=== PATIENT | male | born 1980 | race Caucasian/White ===

== ENCOUNTER 2016-12-03 03:24 | Emergency (ER) | payer BC ==
[2016-12-03 03:54] VITALS: BP 126/76; PULSE 88; TEMP 97.5; BMI 27.3
[2016-12-03] MEDS ORDERED: FOLIC ACID INJECTION - 1 MG, THIAMINE HCL 100 MG, MULTIVIT INJECTION ADULT 10 ML in SOD... IVPB ONE (04:11)
[2016-12-03] MEDS ORDERED: LORazepam 1 MG TABLET PO ONE (04:11)
--- NOTE | 2016-12-03 04:18 | PDOC ---
History of Present Illness <Kayleigh Wilson - Last Filed: 12/03/16 06:59> - General History Source: Patient Exam Limitations: No Limitations - History of Present Illness Initial Comments: 12/03/16 04:14 36 y.o. M with hx of polysubstance abuse (cocaine-last use friday and alcohol - last use today) presenting to the ED today because he would like detox and [facility] does not open until 8 am. Patient states he has been drinking all day and cannot tell me how much. Patient states he has been to [facility] multiple times in the past for 1 week at at time and wants to stay longer to stop his behaviors. Patient denies any symptoms other than anxiety currently. <Elias Luu - Last Filed: 12/05/16 07:23> - General Chief Complaint: Alcohol intoxication Stated Complaint: ALCOHOL DETOX Time Seen by Provider: 12/03/16 03:45 Past History <Kayleigh Wilson - Last Filed: 12/03/16 06:59> - Past Medical History Anemia: No Asthma: No Cancer: No Cardiac Disorders: No CVA: No COPD: No CHF: No Dementia: No Diabetes: No GI Disorders: No Disorders: No HTN: No Hypercholesterolemia: No Kidney Stones: No Liver Disease: No Seizures: No Thyroid Disease: No - Surgical History Abdominal Surgery: No Appendectomy: No Cardiac Surgery: No Cholecystectomy: No Lung Surgery: No Neurologic Surgery: No Orthopedic Surgery: No - Reproductive History Testicular Surgery: No - Suicide/Smoking/Psychosocial Hx Smoking History: Current every day smoker Have you smoked in the past 12 months: Yes Number of Cigarettes Smoked Daily: 2 Cigars Per Day: 0 Information on smoking cessation initiated: No 'Breaking Loose' booklet given: 02/23/15 Hx Alcohol Use: Yes Drug/Substance Use Hx: No Substance Use Type: Alcohol, Cocaine Hx Substance Use Treatment: Yes (05/28/13 TO 05/31/13) <Elias Luu - Last Filed: 12/05/16 07:23> - Past Medical History Allergies/Adverse Reactions: Allergies Allergy/AdvReac Type Severity Reaction Status Date / Time No Known Allergies Allergy Verified 12/03/16 03:49 Home Medications: Ambulatory Orders NK [No Known Home Medication] 05/28/13 Review of Systems - Review of Systems Able to Perform ROS?: Yes Comments:: 12/03/16 04:17 GENERAL/CONSTITUTIONAL: No fever or chills. No weakness. HEAD, EYES, EARS, NOSE AND THROAT: No change in vision. No ear pain or discharge. No sore throat. CARDIOVASCULAR: No chest pain or shortness of breath RESPIRATORY: No cough, wheezing, or hemoptysis. GASTROINTESTINAL: No nausea, vomiting, diarrhea or constipation. GENITOURINARY: No dysuria, frequency, or change in urination. MUSCULOSKELETAL: No joint or muscle swelling or pain. No neck or back pain. SKIN: No rash NEUROLOGIC: No headache, vertigo, loss of consciousness, or change in strength/ sensation. ENDOCRINE: No increased thirst. No abnormal weight change HEMATOLOGIC/LYMPHATIC: No anemia, easy bleeding, or history of blood clots. ALLERGIC/IMMUNOLOGIC: No hives or skin allergy. <Elias Luu - Last Filed: 12/05/16 07:23> *Physical Exam - Vital Signs Last Vital Signs Temp Pulse Resp BP Pulse Ox 97.5 F L 88 14 126/76 100 12/03/16 03:49 12/03/16 03:49 12/03/16 03:49 12/03/16 03:49 12/03/16 03:49 <Kayleigh Wilson - Last Filed: 12/03/16 06:59> - Vital Signs Last Vital Signs Temp Pulse Resp BP Pulse Ox 97.5 F L 88 14 126/76 100 12/03/16 03:49 12/03/16 03:49 12/03/16 03:49 12/03/16 03:49 12/03/16 03:49 - Physical Exam Comments: 12/03/16 04:17 GENERAL: Awake, alert, and fully oriented, in no acute distress.+Anxious, pacing up and down the halls, +disheveled HEAD: No signs of trauma, normocephalic, atraumatic EYES: PERRLA, EOMI, sclera anicteric, conjunctiva clear ENT: Auricles normal inspection, hearing grossly normal, nares patent, oropharynx clear without exudates. Moist mucosa NECK: Normal ROM, supple, no lymphadenopathy, JVD, or masses LUNGS: No distress, speaks full sentences, clear to auscultation bilaterally HEART: Regular rate and rhythm, normal S1 and S2, no murmurs, rubs or gallops, peripheral pulses normal and equal bilaterally. ABDOMEN: Soft, nontender, normoactive bowel sounds. No guarding, no rebound. No masses EXTREMITIES: Normal inspection, Normal range of motion, no edema. No clubbing or cyanosis. NEUROLOGICAL: Cranial nerves II through XII grossly intact. Normal speech, normal gait, no focal sensorimotor deficits SKIN: Warm, Dry, normal turgor, no rashes or lesions noted. <Elias Luu - Last Filed: 12/05/16 07:23> ED Treatment Course - LABORATORY CBC & Chemistry Diagram: 12/03/16 04:55 12/03/16 04:55 - ADDITIONAL ORDERS Additional order review: Laboratory Results 12/03/16 12/03/16 04:55 04:55 Sodium 140 Potassium 4.6 D Chloride 101 Carbon Dioxide 27 Anion Gap 12 BUN 13 D Creatinine 0.9 Creat Clearance w eGFR > 60 Random Glucose 91 Calcium 9.0 Magnesium 2.1 Total Bilirubin 0.3 D AST 26 D ALT 32 D Alkaline Phosphatase 77 Total Protein 7.3 Albumin 4.0 Alcohol, Quantitative 114.9 H* 12/03/16 04:55 RBC 4.95 MCV 90.0 MCHC 33.7 RDW 13.9 MPV 8.4 Neutrophils % 70.3 Lymphocytes % 21.7 Monocytes % 6.7 Eosinophils % 0.4 Basophils % 0.9 - Medications Given in the ED: ED Medications Discontinued Medications Generic Name Dose Route Start Last Admin Trade Name Freq PRN Reason Stop Dose Admin Lorazepam 1 mg 12/03/16 04:11 12/03/16 05:12 Ativan - PO 12/03/16 04:12 1 mg ONCE ONE Administration <Kayleigh Wilson - Last Filed: 12/03/16 06:59> - LABORATORY CBC & Chemistry Diagram: 12/03/16 04:55 12/03/16 04:55 <Elias Luu - Last Filed: 12/05/16 07:23> Medical Decision Making - Medical Decision Making 12/03/16 04:17 36 y.o M with polysubstance abuse wants detox from alcohol and cocaine. Plan: CBC, CMP, Banana Bag, Mg, Ativan PO Patient to be transferred to [facility] <Elias Luu - Last Filed: 12/05/16 07:23> *DC/Admit/Observation/Transfer - Discharge Dispostion Admit: No <Kayleigh Wilson - Last Filed: 12/03/16 06:59> <Elias Luu - Last Filed: 12/05/16 07:23> Diagnosis at time of Disposition: Alcohol intoxication - Discharge Dispostion Disposition: HOME Condition at time of disposition: Stable - Referrals Referrals: Mariella Hyman MD [Staff Physician] - - Patient Instructions Printed Discharge Instructions: DI for Alcohol Abuse Additional Instructions: Please stop using alcohol and cocaine. Please follow up with your PMD once you are discharged from the ED.
--- NOTE | 2016-12-03 04:35 | PDOC ---
Attending Attestation - HPI HPI: 12/03/16 04:40 36 y/o M with a PMHx of alcohol abuse, cocaine abuse presents to the ED requesting detox. Patient reports that he first went to [facility] but they told him they were not accepting admissions until 8 am. Patient is intoxicated. He would not say how much he drank today, but stated his last drink was at 8 pm last night. He also reported that his last cocaine use was 3 days ago. He reports associated anxiety and states he has mental health issues. He also states he feel like he needs to breathe harder to catch his breath. He has gone to detox 3 times prior for one week sessions, and wants to stay longer this time so that he can stay sober. He denies chest pain. Denies nausea, vomiting, diarrhea. Denies any other complaints. - Physicial Exam PE: 12/03/16 04:41 GENERAL: Awake, alert, and fully oriented, in no acute distress. Anxious HEAD: No signs of trauma, dandruff in hair. EYES: PERRLA, EOMI, sclera anicteric, conjunctiva clear ENT: Auricles normal inspection, hearing grossly normal, nares patent, oropharynx clear without exudates. Moist mucosa NECK: Normal ROM, supple, no lymphadenopathy, JVD, or masses LUNGS: Breath sounds equal, clear to auscultation bilaterally. No wheezes, and no crackles HEART: Regular rate and rhythm, normal S1 and S2, no murmurs, rubs or gallops ABDOMEN: Soft, nontender, normoactive bowel sounds. No guarding, no rebound. No masses EXTREMITIES: Normal range of motion, no edema. No clubbing or cyanosis. No cords, erythema, or tenderness NEUROLOGICAL: Cranial nerves II through XII grossly intact. Normal speech, normal gait SKIN: Warm, Dry, normal turgor, no rashes or lesions noted. Dry skin on face. - Medical Decision Making 12/03/16 04:41 Documentation prepared by Shyann Shearer, acting as medical receptionist for Kayleigh Wilson DO. <Shyann Shearer - Last Filed: 12/03/16 04:40> - Resident Resident Name: Elias Luu - ED Attending Attestation I have performed the following: I have examined & evaluated the patient, The case was reviewed & discussed with the resident, I agree w/resident's findings & plan, Exceptions are as noted - Medical Decision Making 12/03/16 04:34 a/p: 36yo male with alcohol and cocaine use requesting help with polysubstance abuse -denies SI/HI -will check labs given binge drinking -pt very anxious. will medicate and reassess -pt requesting to go to detox once stabilized. 12/03/16 06:31 attempted to contact [facility] - awaiting call back 12/03/16 06:31 pt metabolizing etoh, but requests detox. 12/03/16 06:32 pt will be signed out to the oncoming ED physician pending metabolism of etoh and detox assessment for [facility]. <Kayleigh Wilson - Last Filed: 12/03/16 06:33>
[2016-12-03] MEDS ORDERED: LORazepam 0.5 MG TABLET ONE (04:44)
[2016-12-03 05:23] LABS: BASOPHIL 0.9 % (0-2.0); EOSINOPHIL 0.4 % (0-4.5); MCH 30.3 pg (25.7-33.7); MCHC 33.7 g/dl (32.0-35.9); MEAN PLT VOLUME 8.4 fl (7.5-11.1); NEUTROPHILS 70.3 % (42.8-82.8); PLATELET COUNT 293 K/MM3 (134-434); RDW 13.9 % (11.9-15.9); WHITE BLOOD COUNT 9.3 K/mm3 (4.0-10.0)
[2016-12-03 05:43] LABS: ALK PHOS 77 U/L (45-117); ANION GAP 12 (8-16); BILIRUBIN,TOTAL 0.3 mg/dL (0.2-1.0); CO2 27 mmol/L (21-32); CREATININE 0.9 mg/dL (0.7-1.3); GLUCOSE,RANDOM 91 mg/dL (74-106); SGPT/ALT 32 U/L (12-78); TOT PROT 7.3 g/dl (6.4-8.2)
[2016-12-03 05:46] LABS: MAGNESIUM 2.1 mg/dL (1.8-2.4); SGOT/AST 26 U/L (15-37)
[2016-12-03 08:55] LABS: URINE MARIJUANA THC NEGATIVE ng/ml (CUTOFF=50)
== END 2016-12-03 08:23 | disposition other institution (70) ==
LOC: JER 03:24
PROC: 3E033GC Introduction of Other Therapeutic Substance into Peripheral Vein, Percutaneous Approach (ICD-10-PCS; principal; 2016-12-03)
DX: F10.220 Alcohol dependence with intoxication, uncomplicated (principal); F17.210 Nicotine dependence, cigarettes, uncomplicated
CPT/HCPCS: 36415; 80053; 80307; 83735; 85025; 99283-25

== ENCOUNTER 2017-06-01 09:49 | Inpatient (IN) | payer BC ==
[2017-06-01 10:31] VITALS: BMI 26.5
--- NOTE | 2017-06-01 11:33 | HP ---
CIWA Score - CIWA Score Nausea/Vomitin (vomiting x 5) Muscle Tremors: 4-Moderate,w/Arms Extend Anxiety: 4-Mod. Anxious/Guarded Agitation: 3 Paroxysmal Sweats: 3 (back of neck) Orientation: 0-Oriented Tacttile Disturbances: 0-None Auditory Disturbances: 0-None Visual Disturbances: 0-None Headache: 2-Mild CIWA-Ar Total Score: 19 Admission ROS [facility] - HPI Chief Complaint: Alcohol withdrawal symptoms Allergies/Adverse Reactions: Allergies Allergy/AdvReac Type Severity Reaction Status Date / Time No Known Allergies Allergy Verified 06/01/17 11:11 History of Present Illness: 36 years old male with a long history of alcohol dependent is seeking admission to detox. He has been to previous detox at [facility] and reports insignificant period of sobriety. He has medical history of anxiety and depression. He denies suicide attempt and suicidal ideation at this time. Exam Limitations: No Limitations - Ebola screening Have you traveled outside of the country in the last 21 days: No (N) Have you had contact with anyone from an Ebola affected area: No Have you been sick,other than usual withdrawal symptoms: No Do you have a fever: No - Review of Systems Constitutional: Chills, Loss of Appetite, Malaise, Night Sweats, Changes in sleep EENT: reports: Nose Congestion Respiratory: reports: No Symptoms reported Cardiac: reports: No Symptoms Reported GI: reports: Nausea, Poor Appetite, Poor Fluid Intake, Vomiting (x 5), Abdominal cramping : reports: No Symptoms Reported Musculoskeletal: reports: Muscle Pain Integumentary: reports: Dryness Neuro: reports: Tingling, Tremors Endocrine: reports: No Symptoms Reported Psychiatric: reports: Orientated x3, Anxious, Depressed Other Systems: Reviewed and Negative Patient History - Patient Medical History Hx Anemia: No Hx Asthma: No Hx Chronic Obstructive Pulmonary Disease (COPD): No Hx Cancer: No Hx Cardiac Disorders: No Hx Congestive Heart Failure: No Hx Hypertension: No Hx Hypercholesterolemia: No Hx Pacemaker: No HX Cerebrovascular Accident: No Hx Seizures: No Hx Dementia: No Hx Diabetes: No Hx Gastrointestinal Disorders: No Hx Liver Disease: No Hx Genitourinary Disorders: No Hx Sexually Transmitted Disorders: No Hx Renal Disease (ESRD): No Hx Thyroid Disease: No Hx Human Immunodeficiency Virus (HIV): No (NEGATIVE 2012) Hx Hepatitis C: No Hx Depression: Yes (Not on medication) Hx Suicide Attempt: No (Denies suicidal ideation at this time) Hx Bipolar Disorder: No Hx Schizophrenia: No Other Medical History: Anxiety, Insomnia - Patient Surgical History Past Surgical History: No Hx Neurologic Surgery: No Hx Cataract Extraction: No Hx Cardiac Surgery: No Hx Lung Surgery: No Hx Abdominal Surgery: No Hx Appendectomy: No Hx Cholecystectomy: No Hx Genitourinary Surgery: No Hx Orthopedic Surgery: No Anesthesia Reaction: No - PPD History Previous Implant?: Yes Documented Results: Negative w/proof Implanted On Prior [facility] Admission?: Yes Date: 02/25/15 PPD to be Administered?: Yes - Reproductive History Patient is a Female of Child Bearing Age (11 -55 yrs old): No (MALE) - Smoking Cessation Smoking history: Current every day smoker Have you smoked in the past 12 months: Yes Aproximately how many cigarettes per day: 2 Cigars Per Day: 0 Hx Chewing Tobacco Use: No Initiated information on smoking cessation: Yes 'Breaking Loose' booklet given: 06/01/17 - Substance & Tx. History Hx Alcohol Use: Yes Hx Substance Use: No Substance Use Type: Alcohol Hx Substance Use Treatment: Yes ([place], [place]) - Substances Abused Alcohol Route: Oral Frequency: Daily Amount used: 20 BEERS Age of first use: 14 Date of Last Use: 05/31/17 Marijuana/Hashish Frequency: No use in 30 days Amount used: 1 BLUNT Age of first use: 13 Date of Last Use: 04/24/17 Family Disease History - Family Disease History Family Disease History: Diabetes: Father (ALCOHOL), Other: Father, Mother ( ALCOHOL) Admission Physical Exam [facility] - Vital Signs Vital Signs: Vital Signs - 24 hr 06/01/17 10:24 Temperature 98.7 F Pulse Rate 98 H Respiratory 20 Rate Blood Pressure 143/67 - Physical General Appearance: Yes: Moderate Distress HEENTM: Yes: EOMI, Normal ENT Inspection, Normal Voice, BETH Respiratory: Yes: Lungs Clear, Normal Breath Sounds, No Respiratory Distress Neck: Yes: Supple Breast: Yes: Breast Exam Deferred Cardiology: Yes: Tachycardia Abdominal: Yes: Normal Bowel Sounds, Soft Genitourinary: Yes: Within Normal Limits Back: Yes: Normal Inspection Musculoskeletal: Yes: Back pain Extremities: Yes: Tremors Neurological: Yes: Alert, Normal Mood/Affect Integumentary: Yes: Dry Lymphatic: Yes: Within Normal Limits - Diagnostic (1) Anxiety Current Visit: Yes Status: Chronic (2) Alcohol dependence with uncomplicated withdrawal Current Visit: Yes Status: Chronic (3) Depression Current Visit: Yes Status: Chronic (4) Nicotine dependence Current Visit: Yes Status: Chronic Qualifiers: Nicotine product type: cigarettes Substance use status: uncomplicated Qualified Code(s): F17.210 - Nicotine dependence, cigarettes, uncomplicated Cleared for Admission [facility] - Detox or Rehab [facility] Level of Care: Medically Managed Detox Regimen/Protocol: Librium [facility] Breath Alcohol Content Breath Alcohol Content: 0.122 Urine Drug Screen - Results Drug Screen Negative: No Urine Drug Screen Results: TCA-Tricyclic Antidepress
[2017-06-01] MEDS ORDERED: ACETAMINOPHEN 325 MG TABLET (FP) PO PRN (11:52)
[2017-06-01] MEDS ORDERED: LOPERAMIDE HCL 2 MG CAPSULE PO PRN (11:52)
[2017-06-01] MEDS ORDERED: chlordiazePOXIDE HCL 25 MG CAPSULE PO PRN (11:52)
[2017-06-01] MEDS ORDERED: MENTHOL/PHENOL 1 EACH UD MM PRN (11:52)
[2017-06-01] MEDS ORDERED: NICOTINE POLACRILEX 2 MG GUM BUC PRN (11:52)
[2017-06-01] MEDS ORDERED: P-EPHED 60MG/TRIPROLIDI 2.5MG TABLET PO PRN (11:52)
[2017-06-01] MEDS ORDERED: MAGNESIUM HYDROX 2400MG/30ML ORAL SUSPENSION 30 ML CUP PO PRN (11:52)
[2017-06-01] MEDS ORDERED: MAG HYDROX/AL HYDROX/SIMETH 30 ML UNIT-DOSE CUP PO PRN (11:52)
[2017-06-01] MEDS ORDERED: chlordiazePOXIDE HCL 25 MG CAPSULE PO ONE (11:52)
[2017-06-01] MEDS ORDERED: guaiFENesin/D-METHORPHAN HB 10 ML UNIT-DOSE CUPS PO PRN (11:52)
[2017-06-01] MEDS ORDERED: MAGNESIUM CITRATE 300 ML BOTTLE PO PRN (11:52)
[2017-06-01] MEDS ORDERED: IBUPROFEN 400 MG TABLET (FP) PO PRN (11:52)
--- NOTE | 2017-06-01 14:46 | EKG ---
Test Reason : Blood Pressure : / mmHG Vent. Rate : 098 BPM Atrial Rate : 098 BPM P-R Int : 136 ms QRS Dur : 098 ms QT Int : 356 ms P-R-T Axes : 069 078 050 degrees QTc Int : 454 ms NORMAL SINUS RHYTHM NORMAL ECG NO PREVIOUS ECGS AVAILABLE Confirmed by CHEO DICK, VINCENT ([id number]) on 06/01/2017 2:45:45 PM Referred By: Confirmed By:VINCENT GRIDER MD
[2017-06-01 15:11] LABS: URINE APPEARANCE CLEAR; URINE BILIRUBIN NEGATIVE (<2.0 mg/dL); URINE BLOOD NEGATIVE (NEGATIVE); URINE COLOR YELLOW; URINE GLUCOSE (UA) NEGATIVE (NEGATIVE); URINE KETONE NEGATIVE (NEGATIVE); URINE LEUK ESTERASE NEGATIVE (NEGATIVE); URINE NITRITE NEGATIVE (NEGATIVE)
[2017-06-01 15:12] LABS: URINE PROTEIN 1+ (NEGATIVE)
[2017-06-01 15:15] LABS: URINE HYALINE CAST 1 /lpf; URINE MUCUS RARE
[2017-06-01] MEDS: chlordiazePOXIDE HCL 25 MG CAPSULE PO SCH ×2 (17:56→22:12)
[2017-06-01] MEDS: MELATONIN 5 MG TABLETS PO PRN (22:11)
[2017-06-01] MEDS: THIAMINE HCL 100 MG TABLET (FP) PO SCH (22:12)
[2017-06-02] MEDS: chlordiazePOXIDE HCL 25 MG CAPSULE PO SCH ×4 (05:20→22:25)
[2017-06-02] MEDS: PRENATAL VITAMINS W/ FOLIC ACID TABLET (FP) PO SCH (10:20)
[2017-06-02] MEDS: NICOTINE 14 MG/24 HOURS TOPICAL PATCH TD SCH (10:21)
[2017-06-02 12:33] LABS: ALBUMIN 3.6 g/dl (3.4-5.0); ANION GAP 11 (8-16); BILIRUBIN,TOTAL 1.1 mg/dL (0.2-1.0); BLOOD UREA NITROGEN 15 mg/dL (7-18); CALCIUM 9.1 mg/dL (8.5-10.1); CHLORIDE 99 mmol/L (98-107); CO2 31 mmol/L (21-32); CREATININE 0.8 mg/dL (0.7-1.3); GLUCOSE,RANDOM 90 mg/dL (74-106); POTASSIUM 3.4 mmol/L (3.5-5.1); SGOT/AST 75 U/L (15-37); SGPT/ALT 51 U/L (12-78); SODIUM 141 mmol/L (136-145); TOT PROT 6.9 g/dl (6.4-8.2)
[2017-06-02 12:34] LABS: ALK PHOS 76 U/L (45-117)
--- NOTE | 2017-06-02 12:41 | PN ---
S CIWA - CIWA Score Nausea/Vomitin Muscle Tremors: 3 Anxiety: 3 Agitation: 2 Paroxysmal Sweats: 3 Orientation: 0-Oriented Tacttile Disturbances: 0-None Auditory Disturbances: 0-None Visual Disturbances: 0-None Headache: 0-None Present CIWA-Ar Total Score: 14 BHS Progress Note (SOAP) Subjective: sweats shakes sleep disturbance Objective: 06/02/17 12:37 A & O x 3 Vital Signs Temperature 96.2 F L 06/02/17 09:14 Pulse Rate 93 H 06/02/17 09:14 Respiratory Rate 18 06/02/17 09:14 Blood Pressure 133/91 06/02/17 09:14 O2 Sat by Pulse Oximetry (%) Laboratory Last Values Sodium 141 mmol/L (136-145) 06/02/17 07:00 Potassium 3.4 mmol/L (3.5-5.1) L D 06/02/17 07:00 Chloride 99 mmol/L (98-107) 06/02/17 07:00 Carbon Dioxide 31 mmol/L (21-32) 06/02/17 07:00 Anion Gap 11 (8-16) 06/02/17 07:00 BUN 15 mg/dL (7-18) 06/02/17 07:00 Creatinine 0.8 mg/dL (0.7-1.3) 06/02/17 07:00 Creat Clearance w eGFR > 60 (>60) 06/02/17 07:00 Random Glucose 90 mg/dL (74-106) 06/02/17 07:00 Calcium 9.1 mg/dL (8.5-10.1) 06/02/17 07:00 Total Bilirubin 1.1 mg/dL (0.2-1.0) H D 06/02/17 07:00 AST 75 U/L (15-37) H D 06/02/17 07:00 ALT 51 U/L (12-78) D 06/02/17 07:00 Alkaline Phosphatase 76 U/L (45-117) 06/02/17 07:00 Total Protein 6.9 g/dl (6.4-8.2) 06/02/17 07:00 Albumin 3.6 g/dl (3.4-5.0) 06/02/17 07:00 Urine Color Yellow 06/01/17 12:54 Urine Appearance Clear 06/01/17 12:54 Urine pH 6.0 (5.0-8.0) 06/01/17 12:54 Ur Specific [place] 1.027 (1.001-1.035) 06/01/17 12:54 Urine Protein 1+ (NEGATIVE) H 06/01/17 12:54 Urine Glucose (UA) Negative (NEGATIVE) 06/01/17 12:54 Urine Ketones Negative (NEGATIVE) 06/01/17 12:54 Urine Blood Negative (NEGATIVE) 06/01/17 12:54 Urine Nitrite Negative (NEGATIVE) 06/01/17 12:54 Urine Bilirubin Negative (<2.0 mg/dL) 06/01/17 12:54 Urine Urobilinogen 2.0 mg/dL (0.2-1.0) 06/01/17 12:54 Ur Leukocyte Esterase Negative (NEGATIVE) 06/01/17 12:54 Urine WBC (Auto) 1 /hpf (3-5) 06/01/17 12:54 Urine RBC (Auto) 1 /hpf (0-3) 06/01/17 12:54 Hyaline Casts 1 /lpf 06/01/17 12:54 Urine Mucus Rare 06/01/17 12:54 labs noted, Low k+ Assessment: 06/02/17 12:41 withdrawal sx Plan: continue detox Potassium supplement Increase hydration
--- NOTE | 2017-06-02 13:38 | CONSULT ---
[facility] Psychiatric Consult - Data Date of interview: 06/02/17 Admission source: [facility] Identifying data: First admission to [facility] for this 36 y/o male seeking detox treatent on for alcohol and cannabis dependence.Patient is single without children,domiciled and currently employed. Substance Abuse History: Confirmed by patient in this session.[facility] report : Smoking history: Current every day smoker. Have you smoked in the past 12 months: Yes. Aproximately how many cigarettes per day: 2. Cigars Per Day: 0. Hx Chewing Tobacco Use: No. Initiated information on smoking cessation: Yes. 'Breaking Loose' booklet given: 06/01/17. - Substance & Tx. History. Hx Alcohol Use: Yes. Hx Substance Use: No. Substance Use Type : Alcohol. Hx Substance Use Treatment: Yes ([place], [place]). - Substances Abused. Alcohol. Route: Oral. Frequency: Daily. Amount used : 20 BEERS. Age of first use: 14. Date of Last Use: 05/31/17. Marijuana/ Hashish. Frequency: No use in 30 days. Amount used: 1 BLUNT. Age of first use : 13. Date of Last Use: 04/24/17 Medical History: Patient endorses good general health. Psychiatric History: Patient denies history of psychiatric hospitalizations or suicide attempts.Mr King indicates no prior exposure to psychotropic medications/psychiatric OPD care. Physical/Sexual Abuse/Trauma History: No history reported. Additional Comment: Urine Drug Screen Results: TCA-Tricyclic Antidepressant.Noted. Mental Status Exam - Mental Status Exam Alert and Oriented to: Time, Place, Person Cognitive Function: Good Patient Appearance: Well Groomed Mood: Hopeful, Euthymic Affect: Appropriate, Normal Range Patient Behavior: Appropriate, Cooperative Speech Pattern: Clear, Appropriate Voice Loudness: Normal Thought Process: Intact, Goal Oriented Thought Disorder: Not Present Hallucinations: Denies Suicidal Ideation: Denies Homicidal Ideation: Denies Insight/Judgement: Poor Sleep: Poorly, Difficulty falling asleep Appetite: Good Muscle strength/Tone: Normal Gait/Station: Normal Psychiatric Findings - Problem List ([place] 1, 2,3) (1) Alcohol dependence with uncomplicated withdrawal Current Visit: Yes Status: Acute (2) Nicotine dependence Current Visit: Yes Status: Acute Qualifiers: Nicotine product type: cigarettes Substance use status: uncomplicated Qualified Code(s): F17.210 - Nicotine dependence, cigarettes, uncomplicated (3) Insomnia Current Visit: Yes Status: Acute - Initial Treatment Plan Initial Treatment Plan: Psychoeducation.Sleep hygiene discussed.Psychoeducation.Detoxification in progress.Ambien 10 mg po hs prn.Patient made aware of risk of parasomnias (sleep-walking).Mr King agrees with this careplan.Observation.
[2017-06-02 14:29] LABS: HEMATOCRIT 42.1 % (35.4-49); HEMOGLOBIN 14.2 GM/dL (11.7-16.9); MCH 30.9 pg (25.7-33.7); MCHC 33.8 g/dl (32.0-35.9); MEAN CELL VOLUME 91.3 fl (80-96); MEAN PLT VOLUME 8.5 fl (7.5-11.1); PLATELET COUNT 205 K/MM3 (134-434); RBC 4.62 M/mm3 (4.00-5.60); RDW 14.2 % (11.9-15.9)
[2017-06-02] MEDS ORDERED: ZOLPIDEM TARTRATE 10 MG TABLET (PARK CARE ONLY) PO PRN (22:00)
[2017-06-02] MEDS: THIAMINE HCL 100 MG TABLET (FP) PO SCH (22:25)
[2017-06-02] MEDS: MELATONIN 5 MG TABLETS PO PRN (22:26)
[2017-06-03] MEDS: chlordiazePOXIDE HCL 25 MG CAPSULE PO SCH ×2 (05:21→10:07)
[2017-06-03] MEDS: PRENATAL VITAMINS W/ FOLIC ACID TABLET (FP) PO SCH (10:06)
[2017-06-03] MEDS: NICOTINE 14 MG/24 HOURS TOPICAL PATCH TD SCH (10:48)
--- NOTE | 2017-06-03 10:57 | PN ---
[facility] CIWA - CIWA Score Nausea/Vomitin-No Nausea/No Vomiting Muscle Tremors: None Anxiety: 4-Mod. Anxious/Guarded Agitation: 4-Moderately Restless Paroxysmal Sweats: No Perspiration Orientation: 0-Oriented Tacttile Disturbances: 2-Mild Itch/Numbness/Burn Auditory Disturbances: 1-Very Mild Visual Disturbances: 3-Moderate Sensitivity Headache: 0-None Present CIWA-Ar Total Score: 14 S Progress Note (SOAP) Subjective: Stomach Cramping, Anxious, Fatigue, Interrupted Sleep. Objective: PATIENT A & O X 3, OBSERVED AMBULATING ON UNIT. NO ACUTE DISTRESS. 06/03/17 10:54 Vital Signs Temperature 97.9 F 06/03/17 09:24 Pulse Rate 88 06/03/17 09:24 Respiratory Rate 18 06/03/17 09:24 Blood Pressure 122/61 06/03/17 09:24 O2 Sat by Pulse Oximetry (%) Laboratory Tests 06/01/17 06/02/17 06/02/17 12:54 07:00 07:00 WBC 7.0 RBC 4.62 Hgb 14.2 Hct 42.1 MCV 91.3 MCH 30.9 MCHC 33.8 RDW 14.2 Plt Count 205 D MPV 8.5 Sodium 141 Potassium 3.4 L D Chloride 99 Carbon Dioxide 31 Anion Gap 11 BUN 15 Creatinine 0.8 Creat Clearance w eGFR > 60 Random Glucose 90 Calcium 9.1 Total Bilirubin 1.1 H D AST 75 H D ALT 51 D Alkaline Phosphatase 76 Total Protein 6.9 Albumin 3.6 Urine Color Yellow Urine Appearance Clear Urine pH 6.0 Ur Specific [place] 1.027 Urine Protein 1+ H Urine Glucose (UA) Negative Urine Ketones Negative Urine Blood Negative Urine Nitrite Negative Urine Bilirubin Negative Urine Urobilinogen 2.0 Ur Leukocyte Esterase Negative Urine WBC (Auto) 1 Urine RBC (Auto) 1 Hyaline Casts 1 Urine Mucus Rare LABS NOTED. RPR RESULT PENDING. 06/03/17 10:56 Assessment: 06/03/17 10:55 WITHDRAWAL SYMPTOMS. HYPOKALEMIA. 06/03/17 10:55 Plan: CONTINUE DETOX. K-DUR, 20 MEQ PO X I NOW, THEN 20 MEQ PO BID. INCREASE DAILY PO FLUID INTAKE.
[2017-06-03] MEDS ORDERED: POTASSIUM CHLORIDE TABS 20 MEQ TABLET.ER (FP) PO ONE (11:35)
[2017-06-03] MEDS: chlordiazePOXIDE 5 MG CAPSULE PO SCH ×2 (17:23→22:40)
[2017-06-03] MEDS: POTASSIUM CHLORIDE TABS 20 MEQ TABLET.ER (FP) PO SCH (17:23)
[2017-06-03] MEDS: THIAMINE HCL 100 MG TABLET (FP) PO SCH (22:39)
[2017-06-04] MEDS: chlordiazePOXIDE 5 MG CAPSULE PO SCH ×2 (05:33→10:09)
[2017-06-04 06:26] VITALS: TEMP 97
[2017-06-04 09:54] VITALS: BP 102/65; PULSE 75
[2017-06-04] MEDS: PRENATAL VITAMINS W/ FOLIC ACID TABLET (FP) PO SCH (10:09)
[2017-06-04] MEDS: POTASSIUM CHLORIDE TABS 20 MEQ TABLET.ER (FP) PO SCH (10:09)
[2017-06-04] MEDS: NICOTINE 14 MG/24 HOURS TOPICAL PATCH TD SCH (10:09)
--- NOTE | 2017-06-04 14:22 | PN ---
[facility] Progress Note (SOAP) Subjective: Patient denies any current Detox symptoms and reports that he is feeling well overall. Objective: PATIENT A & O X 3, OBSERVED AMBULATING ON UNIT. NO ACUTE DISTRESS. 06/04/17 14:20 Vital Signs Temperature 97 F L 06/04/17 09:53 Pulse Rate 75 06/04/17 09:53 Respiratory Rate 18 06/04/17 09:53 Blood Pressure 102/65 06/04/17 09:53 O2 Sat by Pulse Oximetry (%) Laboratory Tests 06/01/17 06/02/17 06/02/17 12:54 07:00 07:00 WBC 7.0 RBC 4.62 Hgb 14.2 Hct 42.1 MCV 91.3 MCH 30.9 MCHC 33.8 RDW 14.2 Plt Count 205 D MPV 8.5 Sodium 141 Potassium 3.4 L D Chloride 99 Carbon Dioxide 31 Anion Gap 11 BUN 15 Creatinine 0.8 Creat Clearance w eGFR > 60 Random Glucose 90 Calcium 9.1 Total Bilirubin 1.1 H D AST 75 H D ALT 51 D Alkaline Phosphatase 76 Total Protein 6.9 Albumin 3.6 Urine Color Yellow Urine Appearance Clear Urine pH 6.0 Ur Specific [place] 1.027 Urine Protein 1+ H Urine Glucose (UA) Negative Urine Ketones Negative Urine Blood Negative Urine Nitrite Negative Urine Bilirubin Negative Urine Urobilinogen 2.0 Ur Leukocyte Esterase Negative Urine WBC (Auto) 1 Urine RBC (Auto) 1 Hyaline Casts 1 Urine Mucus Rare RPR Titer 06/02/17 07:00 WBC RBC Hgb Hct MCV MCH MCHC RDW Plt Count MPV Sodium Potassium Chloride Carbon Dioxide Anion Gap BUN Creatinine Creat Clearance w eGFR Random Glucose Calcium Total Bilirubin AST ALT Alkaline Phosphatase Total Protein Albumin Urine Color Urine Appearance Urine pH Ur Specific [place] Urine Protein Urine Glucose (UA) Urine Ketones Urine Blood Urine Nitrite Urine Bilirubin Urine Urobilinogen Ur Leukocyte Esterase Urine WBC (Auto) Urine RBC (Auto) Hyaline Casts Urine Mucus RPR Titer Nonreactive LABS NOTED. Assessment: 06/04/17 14:20 COMPLETION OF DETOX REGIMEN. Plan: PATIENT SCHEDULED FOR DISCHARGE FROM DETOX TODAY. PATIENT WILL RETURN HOME SO THAT HE MAY RETURN TO WORK. PATIENT WILL ALSO RETURN TO PREVIOUS OUTPATIENT [facility].
--- NOTE | 2017-06-04 14:25 | DS ---
[facility] Detox Discharge Summary Admission Date: 06/01/17 Discharge Date: 06/04/17 - History Present History: Alcohol Dependence Additional Comments: PATIENT DENIES ANY CURRENT DETOX SYMPTOMS AND REPORTS THAT HE FEELS WELL OVERALL AT TIME OF DISCHARGE. PATIENT WILL RETURN HOME SO THAT HE MAY RETURN TO WORK. PATIENT WILL ALSO RETURN TO PREVIOUS OUTPATIENT SUPPORT GROUP MEETINGS FOR AFTERCARE. PATIENT WAS DISCHARGED FROM DETOX UNIT IN STABLE MEDICAL CONDITION. Pertinent Past History: Depression, Anxiety, Insomnia, Nicotine Dependence, Syncope. - Physical Exam Results Vital Signs: Vital Signs Temperature 97 F L 06/04/17 09:53 Pulse Rate 75 06/04/17 09:53 Respiratory Rate 18 06/04/17 09:53 Blood Pressure 102/65 06/04/17 09:53 O2 Sat by Pulse Oximetry (%) Pertinent Admission Physical Exam Findings: WITHDRAWAL SYMPTOMS. Laboratory Tests 06/01/17 06/02/17 06/02/17 12:54 07:00 07:00 WBC 7.0 RBC 4.62 Hgb 14.2 Hct 42.1 MCV 91.3 MCH 30.9 MCHC 33.8 RDW 14.2 Plt Count 205 D MPV 8.5 Sodium 141 Potassium 3.4 L D Chloride 99 Carbon Dioxide 31 Anion Gap 11 BUN 15 Creatinine 0.8 Creat Clearance w eGFR > 60 Random Glucose 90 Calcium 9.1 Total Bilirubin 1.1 H D AST 75 H D ALT 51 D Alkaline Phosphatase 76 Total Protein 6.9 Albumin 3.6 Urine Color Yellow Urine Appearance Clear Urine pH 6.0 Ur Specific [place] 1.027 Urine Protein 1+ H Urine Glucose (UA) Negative Urine Ketones Negative Urine Blood Negative Urine Nitrite Negative Urine Bilirubin Negative Urine Urobilinogen 2.0 Ur Leukocyte Esterase Negative Urine WBC (Auto) 1 Urine RBC (Auto) 1 Hyaline Casts 1 Urine Mucus Rare RPR Titer 06/02/17 07:00 WBC RBC Hgb Hct MCV MCH MCHC RDW Plt Count MPV Sodium Potassium Chloride Carbon Dioxide Anion Gap BUN Creatinine Creat Clearance w eGFR Random Glucose Calcium Total Bilirubin AST ALT Alkaline Phosphatase Total Protein Albumin Urine Color Urine Appearance Urine pH Ur Specific [place] Urine Protein Urine Glucose (UA) Urine Ketones Urine Blood Urine Nitrite Urine Bilirubin Urine Urobilinogen Ur Leukocyte Esterase Urine WBC (Auto) Urine RBC (Auto) Hyaline Casts Urine Mucus RPR Titer Nonreactive LABS NOTED. - Treatment Hospital Course: Detox Protocol Followed, Detoxed Safely, Responded well, Discharged Condition Good Patient has Accepted a Rehab Referral to: PT RETURNING TO HOME/WORK; WILL RETURN TO PREVIOUS OUTPATIENT AA MEETINGS. - Medication Discharge Medications: Ambulatory Orders NK [No Known Home Medication] 05/28/13 - Diagnosis (1) Alcohol dependence with uncomplicated withdrawal Status: Acute (2) Anxiety Status: Chronic (3) Depression Status: Chronic Qualifiers: Depression Type: unspecified Qualified Code(s): F32.9 - Major depressive disorder, single episode, unspecified (4) Nicotine dependence Status: Acute Qualifiers: Nicotine product type: cigarettes Substance use status: uncomplicated Qualified Code(s): F17.210 - Nicotine dependence, cigarettes, uncomplicated (5) Syncope Status: Acute Qualifiers: Syncope type: unspecified Qualified Code(s): R55 - Syncope and collapse (6) Insomnia Status: Acute Qualifiers: Insomnia type: unspecified Qualified Code(s): G47.00 - Insomnia, unspecified - AMA Did Patient Leave Against Medical Advice: No
[2017-06-04] MEDS ORDERED: chlordiazePOXIDE HCL 10 MG CAPSULE PO SCH (17:00)
== END 2017-06-04 10:35 | disposition home or self-care (01) | DRG 897 ==
LOC: YASAS 09:49 → Y3N 12:15
PROVIDERS: ADMIT Internal Medicine; ATTEND Internal Medicine
PROC: HZ2ZZZZ Detoxification Services for Substance Abuse Treatment (ICD-10-PCS; principal; 2017-06-01)
DX: F10.230 Alcohol dependence with withdrawal, uncomplicated (principal); F17.210 Nicotine dependence, cigarettes, uncomplicated; F32.9 Major depressive disorder, single episode, unspecified; F41.9 Anxiety disorder, unspecified; G47.00 Insomnia, unspecified; R55 Syncope and collapse
CPT/HCPCS: 36415; 80053; 81003; 81015; 85027; 86593; 93005; 93010

== ENCOUNTER 2017-12-03 21:20 | Inpatient (IN) | payer BC ==
[2017-12-03 21:32] VITALS: BMI 27.2
[2017-12-03] MEDS ORDERED: FOLIC ACID INJECTION - 1 MG, THIAMINE HCL 100 MG, MULTIVIT INJECTION ADULT 10 ML in SOD... IVPB ONE (23:49)
--- NOTE | 2017-12-04 00:14 | PDOC ---
Attending Attestation - Resident Resident Name: ShannonJanessa - ED Attending Attestation I have performed the following: I have examined & evaluated the patient, The case was reviewed & discussed with the resident, I agree w/resident's findings & plan, Exceptions are as noted - HPI HPI: 12/04/17 00:12 The patient is a 37-year-old male, with a past medical history of alcohol dependence, cocaine abuse, anxiety, and depression, who presents to the ED seeking ETOH detox. The patient states that he was dropped off by his family. He reports drinking 10 cans of beer and 1 pint of vodka today but denies any drug use today. He is complaining of epigastric pain and has no other complaints. The patient denies any fevers, chills, nausea, vomiting, diarrhea, or hematochezia. Denies any chest pain or shortness of breath. Denies any urinary complaints. Allergies: NKA. Social History: Alcohol dependence, Cocaine use. Surgical History: None reported. - Physicial Exam PE: 12/04/17 00:14 "GENERAL: Awake, alert, and fully oriented, in no acute distress. HEAD: No signs of trauma EYES: PERRLA, EOMI, sclera anicteric, conjunctiva clear ENT: Auricles normal inspection, hearing grossly normal, nares patent, oropharynx clear without exudates. Moist mucosa NECK: Nontender, no stepoffs, Normal ROM, supple, no lymphadenopathy, JVD, or masses LUNGS: Breath sounds equal, clear to auscultation bilaterally. No wheezes, and no crackles HEART: Regular rate and rhythm, normal S1 and S2, no murmurs, rubs or gallops ABDOMEN: Soft, nontender, normoactive bowel sounds. No guarding, no rebound. No masses EXTREMITIES: Normal range of motion, no edema. No clubbing or cyanosis. No cords, erythema, or tenderness NEUROLOGICAL: Cranial nerves II through XII intact. 5/5 strength and sensation in all extremities, Normal speech, normal gait, normal cerebellar function SKIN: Warm, Dry, normal turgor, no rashes or lesions noted. - Medical Decision Making 12/04/17 00:14 37 M with ETOH intoxication and epigastric pain, seeking detox. - Labs, lipase - GI cocktail - Banana bag - Detox when sober 12/04/17 02:36 Labs notable for RADHA, Cr baseline 0.8, now >2 Will admit obs for RADHA
[2017-12-04 01:21] LABS: BASO % 0.6 % (0-2.0); HEMATOCRIT 44.7 % (35.4-49); LYMPH % 11.1 % (8-40); MCH 29.7 pg (25.7-33.7); MCHC 33.4 g/dl (32.0-35.9); MEAN PLT VOLUME 7.8 fl (7.5-11.1); MONO % 7.1 % (3.8-10.2); NEUT % 81.2 % (42.8-82.8); PLATELET COUNT 351 K/MM3 (134-434); RBC 5.03 M/mm3 (4.00-5.60); RDW 14.6 % (11.9-15.9); WHITE BLOOD COUNT 12.6 K/mm3 (4.0-10.0)
[2017-12-04 01:49] LABS: ALBUMIN 4.5 g/dl (3.4-5.0); ALK PHOS 75 U/L (45-117); ANION GAP 9 MMOL/L (8-16); BILIRUBIN,TOTAL 0.3 mg/dL (0.2-1); BLOOD UREA NITROGEN 10 mg/dL (7-18); CALCIUM 9.4 mg/dL (8.5-10.1); CHLORIDE 98 mmol/L (98-107); CO2 29 mmol/L (21-32); CREATININE 2.3 mg/dL (0.55-1.3); GLUCOSE,RANDOM 145 mg/dL (74-106); LIPASE 181 U/L (73-393); POTASSIUM 4.2 mmol/L (3.5-5.1); SGOT/AST 33 U/L (15-37); SGPT/ALT 40 U/L (13-61); SODIUM 135 mmol/L (136-145); TOT PROT 8.6 g/dl (6.4-8.2)
--- NOTE | 2017-12-04 02:09 | PDOC ---
History of Present Illness - General Chief Complaint: Alcohol intoxication Stated Complaint: LOSS OF APPETITE Time Seen by Provider: 12/03/17 23:02 History Source: Patient Exam Limitations: Intoxication - History of Present Illness Initial Comments: 12/04/17 02:06 Pt is a 37yo M with PMH of alcohol dependence brought to ED by family members for alcohol intoxication and pt was requesting detox. Pt states his last drink was this morning. He states he drank "a lot". When asked what he drank, pt states he drank beers, around 10 and around 1pt of vodka. He denies bz, opiate, cocaine, heroin, marijuana, pcp use. Pt says he has been to detox in the past. He is admitting to epigastric abdominal pain and headache. He denies chest pain , sob, n/v/d, fevers, falling, injures, loss of consciousness, SI/HI and hallucinations. He has never had seizures from alcohol withdrawal in the past. PMH: alcohol dependence PSH: herniated disc repair Meds: none Allergies: none PCP: Dr. Bravo? Past History - Past Medical History Allergies/Adverse Reactions: Allergies Allergy/AdvReac Type Severity Reaction Status Date / Time No Known Allergies Allergy Verified 12/03/17 21:32 Home Medications: Ambulatory Orders NK [No Known Home Medication] 05/28/13 Anemia: No Asthma: No Cancer: No Cardiac Disorders: No CVA: No COPD: No CHF: No Dementia: No Diabetes: No GI Disorders: No Disorders: No HTN: No Hypercholesterolemia: No Kidney Stones: No Liver Disease: No Seizures: No Thyroid Disease: No - Surgical History Abdominal Surgery: No Appendectomy: No Cardiac Surgery: No Cholecystectomy: No Lung Surgery: No Neurologic Surgery: No Orthopedic Surgery: No - Reproductive History Testicular Surgery: No - Suicide/Smoking/Psychosocial Hx Smoking History: Never smoked Have you smoked in the past 12 months: Yes Number of Cigarettes Smoked Daily: 2 Cigars Per Day: 0 Information on smoking cessation initiated: No 'Breaking Loose' booklet given: 06/01/17 Hx Alcohol Use: Yes Drug/Substance Use Hx: No Substance Use Type: Alcohol Hx Substance Use Treatment: Yes ([place], [place]) Review of Systems - Review of Systems Able to Perform ROS?: Yes (pt intoxicated) Is the patient limited Cook Islander proficient: No Constitutional: No: Chills, Fever HEENTM: No: Recent change in vision, Double Vision, Throat Pain, Mouth Pain Respiratory: No: Cough, Shortness of Breath Cardiac (ROS): No: Chest Pain, Lightheadedness, Palpitations, Syncope ABD/GI: Yes: Abdominal cramping (epigastric abdominal pain). No: Constipated, Diarrhea, Nausea, Vomiting : No: Burning, Flank Pain, Hematuria Musculoskeletal: No: Back Pain, Joint Pain, Muscle Pain, Muscle Weakness Neurological: Yes: Headache. No: Numbness, Seizure, Tingling, Tremors, Weakness , Dizziness Psychiatric: Yes: Other (no si/hi or hallucinations) *Physical Exam - Vital Signs Last Vital Signs Temp Pulse Resp BP Pulse Ox 97.5 F L 108 H 18 136/68 96 12/03/17 21:29 12/03/17 21:29 12/03/17 21:29 12/03/17 21:29 12/03/17 21:29 - Physical Exam Comments: 12/04/17 03:58 Pt walking around vertical room. Intoxicated General Appearance: Yes: Nourished, Appropriately Dressed, Intoxicated HEENT: positive: EOMI, BETH (sluggish), Pharynx Normal, Hearing Grossly Normal. negative: Pale Conjunctivae, Scleral Icterus (R), Scleral Icterus (L) Neck: positive: Trachea midline, Supple. negative: Lymphadenopathy (R), Lymphadenopathy (L) Respiratory/Chest: positive: Lungs Clear, Normal Breath Sounds. negative: Crackles, Rales, Rhonchi, Stridor, Wheezing Cardiovascular: positive: Regular Rhythm, S1, S2, Tachycardia. negative: Edema , JVD, Murmur Vascular Pulses: Carotid (R): 2+, Carotid (L): 2+, Dorsalis-Pedis (R): 2+, Doralis-Pedis (L): 2+ Gastrointestinal/Abdominal: positive: Normal Bowel Sounds, Soft. negative: Protuberent, Distended, Guarding, Rebound, Tenderness Musculoskeletal: negative: CVA Tenderness, Decreased Range of Motion Extremity: positive: Normal Capillary Refill. negative: Pedal Edema, Swelling, Calf Tenderness Integumentary: positive: Normal Color, Dry, Warm. 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 negative: Confused , Disoriented ED Treatment Course - LABORATORY CBC & Chemistry Diagram: 12/04/17 00:59 12/04/17 00:59 - ADDITIONAL ORDERS Additional order review: Laboratory Results 12/04/17 00:59 Sodium 135 L Potassium 4.2 Chloride 98 Carbon Dioxide 29 Anion Gap 9 BUN 10 Creatinine 2.3 H Creat Clearance w eGFR 32.16 Random Glucose 145 H Calcium 9.4 Total Bilirubin 0.3 AST 33 ALT 40 Alkaline Phosphatase 75 Total Protein 8.6 H Albumin 4.5 Lipase 181 12/04/17 00:59 RBC 5.03 MCV 89.0 MCHC 33.4 RDW 14.6 MPV 7.8 Neutrophils % 81.2 Lymphocytes % 11.1 D Monocytes % 7.1 Eosinophils % 0.0 D Basophils % 0.6 Medical Decision Making - Medical Decision Making 12/04/17 04:00 37yo m with pmh of alcohol dependence dropped off by family to ED for alcohol intoxication. Pt expressed desire for detox. Vitals: tachycardia PE: benign. No epigastric tenderness. Pt is intoxicated, pain response could be blunted. Will order banana bag, cbc and cmp with lipase. CMP showed Cr of 2.4 (0.8 in May of this year) BUN wnl. Does not seem like prerenal radha. Will order UA, UTox, ekg and admit pt obs for radha. Pt hemodynamically stable. Will admit obs under Dr. Stephenson. *DC/Admit/Observation/Transfer Diagnosis at time of Disposition: RADHA (acute kidney injury), Alcohol intoxication - Discharge Dispostion Condition at time of disposition: Stable Decision to Admit order: Yes Decision to Admit order Date/Time: Decision to Admit Order Category Date Time Status Decision to Admit to Hospital Routine Admission 12/04/17 02:02 Active - Referrals - Patient Instructions - Post Discharge Activity
--- NOTE | 2017-12-04 03:12 | HP ---
CHIEF COMPLAINT: "feeling weak", wants alcohol detox now PCP: Dr. Bravo HISTORY OF PRESENT ILLNESS: 37M w/ pmhx of alcohol and cocaine abuse presented to the ED w/ complaints of "feeling weak" since earlier today. He states that his last drink was this morning and had 1 bottle of vodka. He reports that he usually has 1 bottle of vodka a day for many years. His last detox program was 2 weeks ago at another institution in the city. He admits to headache, dizziness, blurry vision, nausea. He denies chest pain, sob, vomiting, abd pain, leg pain, or difficulty walking. He states that he does not have urinary symptoms although he has noticed that his urine has been dark yellow. HE also ER course was notable for: (1) WBC 12.6, Na 135, Cr 2.3, Glu 145 (2) Banana bag given (3) Recent Travel: Denies PAST MEDICAL HISTORY: Alcohol abuse Cocaine abuse PAST SURGICAL HISTORY: Denies Social History: Smoking: "once in a while" Alcohol: 1 bottle of vodka/day Drugs: snorts cocaine 1x/month, last used 1 month ago Family History: Father: DM Allergies No Known Allergies Allergy (Verified 12/03/17 21:32) HOME MEDICATIONS: Home Medications Medication Instructions Recorded NK [No Known Home Medication] 05/28/13 REVIEW OF SYSTEMS CONSTITUTIONAL: generalized weakness Absent: fever, chills, diaphoresis, malaise, loss of appetite, weight change HEENT: Absent: throat pain, eye pain, visual changes CARDIOVASCULAR: Absent: chest pain, syncope, palpitations, irregular heart rate, lightheadedness RESPIRATORY: Absent: cough, shortness of breath, dyspnea with exertion GASTROINTESTINAL: abdominal pain, nausea, Absent: abdominal distension, vomiting, diarrhea, constipation GENITOURINARY: noticeably dark yellow urine Absent: dysuria, frequency, urgency, hesitancy, hematuria MUSCULOSKELETAL: Absent: myalgia, arthralgia, joint swelling, back pain, neck pain NEUROLOGIC: headache, dizziness, Absent: focal weakness or paresthesias, unsteady gait, seizure, mental status changes, bladder or bowel incontinence PSYCHIATRIC: Absent: anxiety, depression, suicidal or homicidal ideation, hallucinations. PHYSICAL EXAMINATION Vital Signs - 24 hr 12/03/17 21:29 Temperature 97.5 F L Pulse Rate 108 H Respiratory 18 Rate Blood Pressure 136/68 O2 Sat by Pulse 96 Oximetry (%) GENERAL: AAOx3. NAD. Comfortable. HEENT: AT/NC. EOMI. SETH. Moist mucus membranes. NECK: Supple w/ no LAD/JVD. No tenderness. LUNGS: CTA B/L. No w/r/r noted. Symmetric chest rise. HEART: RRR, Normal S1, S2. No murmurs noted. ABDOMEN: Soft ND. Tender to palpation in R U/L quadrants. Mild hepatomegaly. Decreased bowel sounds. No masses or bruits noted. EXTREMITIES: No peripheral edema noted. 2+ pedal pulses b/l. 5/5 muscle strength b/l u/l extremities. NEUROLOGICAL: Cranial nerves II-XII intact. Facial symmetry noted. Normal speech. PSYCHIATRIC: Cooperative. Good eye contact. Appropriate mood and affect. SKIN: Warm, dry, normal turgor, no rashes or lesions noted, normal capillary refill. Laboratory Results - last 24 hr 12/04/17 12/04/17 00:59 00:59 WBC 12.6 H RBC 5.03 Hgb 15.0 Hct 44.7 MCV 89.0 MCH 29.7 MCHC 33.4 RDW 14.6 Plt Count 351 D MPV 7.8 Absolute Neuts (auto) 10.2 H Neutrophils % 81.2 Lymphocytes % 11.1 D Monocytes % 7.1 Eosinophils % 0.0 D Basophils % 0.6 Nucleated RBC % 0 Sodium 135 L Potassium 4.2 Chloride 98 Carbon Dioxide 29 Anion Gap 9 BUN 10 Creatinine 2.3 H Creat Clearance w eGFR 32.16 Random Glucose 145 H Calcium 9.4 Total Bilirubin 0.3 AST 33 ALT 40 Alkaline Phosphatase 75 Total Protein 8.6 H Albumin 4.5 Lipase 181 ASSESSMENT/PLAN: 37M w/ pmhx of alcohol and cocaine abuse admitted for RADHA and alcohol withdrawal. #RADHA; Cr 2.3. U/A showed 1+ ketones otherwise neg. Pt complaining of dark yellow urine. Pt likely dehydrated as he states he drinks 2 glasses of water a day in additional to diuretic effects of substantial alcohol abuse. -Renal U/S to assess kidney -Urine electrolytes ordered; calculate FeNa to determine etiology of RADHA -LR 500ml ordered -NS @ 100 for hydration #Alcohol withdrawal/intoxication -Librium protocol -Utox neg -Alcohol cessation counseling -Consider detox consult after Librium tx complete #Cocaine abuse -Cocaine cessation counseling #DVT Ppx -SCDs #FEN -NS @ 100 -recheck Cr in AM -Regular diet dispo -admit to med-surg -full code Visit type - Emergency Visit Emergency Visit: Yes ED Registration Date: 12/04/17 Care time: The patient presented to the Emergency Department on the above date and was hospitalized for further evaluation of their emergent condition. - New Patient This patient is new to me today: Yes Date on this admission: 12/04/17 - Critical Care Critical Care patient: No
[2017-12-04] MEDS ORDERED: chlordiazePOXIDE HCL 25 MG CAPSULE PO PRN (03:58)
[2017-12-04] MEDS ORDERED: SODIUM CHLORIDE 1,000 ML IV SCH (04:00)
[2017-12-04 04:27] LABS: URINE APPEARANCE CLEAR; URINE BILIRUBIN NEGATIVE (<2.0 mg/dL); URINE COLOR YELLOW; URINE GLUCOSE (UA) NEGATIVE (NEGATIVE); URINE KETONE 1+ (NEGATIVE); URINE LEUK ESTERASE NEGATIVE (NEGATIVE); URINE NITRITE NEGATIVE (NEGATIVE); URINE PROTEIN NEGATIVE (NEGATIVE); URINE UROBILINOGEN NEGATIVE mg/dL (0.2-1.0)
[2017-12-04 04:44] LABS: COCAINE, UR NEGATIVE ng/ml (CUTOFF=300); METHADONE, UR NEGATIVE ng/ml (CUTOFF=300); OPIATES, URI NEGATIVE ng/ml (CUTOFF=300); PHENCYCLIDINE,URINE NEGATIVE ng/ml (CUTOFF=25); URINE AMPHETAMINES NEGATIVE ng/ml (CUTOFF=500); URINE BARBITURATES NEGATIVE ng/ml (CUTOFF=200); URINE BENZODIAZEPINES NEGATIVE ng/ml (CUTOFF=200)
[2017-12-04] MEDS ORDERED: chlordiazePOXIDE HCL 25 MG CAPSULE ONE ×3 (05:26→11:35)
[2017-12-04] MEDS ORDERED: HEPARIN NA (PORCINE) 5,000 UNITS/ML 1ML VIAL ONE (05:26)
[2017-12-04] MEDS: chlordiazePOXIDE HCL 25 MG CAPSULE PO SCH ×2 (05:30→11:45)
[2017-12-04] MEDS ORDERED: LACTATED RINGERS SOLUTION 1000 ML INFUS.BAG IV ONE (05:36)
[2017-12-04] MEDS: SODIUM CHLORIDE 1,000 ML IV SCH ×2 (05:39→11:45)
[2017-12-04] MEDS ORDERED: HEPARIN NA (PORCINE) 5,000 UNITS/ML 1ML VIAL SQ SCH ×2 (06:00→14:00)
--- NOTE | 2017-12-04 06:20 | PN ---
Teaching Attending Note Name of Resident: Lauren Calhoun ATTENDING PHYSICIAN STATEMENT I saw and evaluated the patient. I reviewed the resident's note and discussed the case with the resident. I agree with the resident's findings and plan as documented. SUBJECTIVE: Presents after being dropped off by family requesting alcohol detoxification. Has been drinking heavily, aprox. 1 bottle of vodka per day. He drinks all day long and oes so until he passes out. He has been doing this for quite some time. He has been to detox before but not rehab; furthermore he denies any history of EtOH WD seizures but states that he does have WD sx and is currently shaky. Rest of history per resident note. Last Cr is wnl. He did urinate when in the Er. 10 sys ROS done and negative aside from HPI OBJECTIVE: VSS, per chart Gen: AAOx3, some shakiness, resting in bed. Appears somewhat on edge. CV: RRR s1/2 no mgr GI: Soft, NT ND +BS, no bladder distention HEENT: NC AT EOMI PERRLA Pulm: sym expansion, no distress Neuro: CN 2-12 grossly intact. No lateralizing signs. Sensation in tact. Psych: Anxious affect, normal mood, averge insight, non-suicidal. ASSESSMENT AND PLAN: 1) RADHA -Calculating FeNa, obtaining EVELYN, check UA -Hydrating; he only drinks ~2 glasses of water per day at most. Combined with alcohol this could have lead to a great deal of dehydration. 2) EtOH abuse -Counseled to stop drinking. -CIWA protocol; given history he is at high risk of severe withdrawal. -Refer to detox when #1 resolves 3) Cocaine Abuse -Counseled regarding cessasion FULL CODE
[2017-12-04 07:39] LABS: HEMATOCRIT 41.1 % (35.4-49); HEMOGLOBIN 13.8 GM/dL (11.7-16.9); LYMPH % 22.3 % (8-40); MCHC 33.5 g/dl (32.0-35.9); MEAN CELL VOLUME 89.5 fl (80-96); MEAN PLT VOLUME 7.4 fl (7.5-11.1); MONO % 10.8 % (3.8-10.2); NEUT % 65.9 % (42.8-82.8); PLATELET COUNT 281 K/MM3 (134-434); RDW 14.6 % (11.9-15.9); WHITE BLOOD COUNT 10.1 K/mm3 (4.0-10.0)
[2017-12-04 08:19] LABS: ALBUMIN 3.5 g/dl (3.4-5.0); ALK PHOS 60 U/L (45-117); ANION GAP 8 MMOL/L (8-16); BILIRUBIN,TOTAL 0.4 mg/dL (0.2-1); BLOOD UREA NITROGEN 9 mg/dL (7-18); CALCIUM 8.5 mg/dL (8.5-10.1); CHLORIDE 104 mmol/L (98-107); CO2 28 mmol/L (21-32); CREATININE 1.9 mg/dL (0.55-1.3); GLUCOSE,RANDOM 108 mg/dL (74-106); POTASSIUM 3.6 mmol/L (3.5-5.1); SGOT/AST 26 U/L (15-37); SGPT/ALT 32 U/L (13-61); SODIUM 140 mmol/L (136-145); TOT PROT 6.7 g/dl (6.4-8.2)
[2017-12-04 09:46] VITALS: TEMP 98.2
--- NOTE | 2017-12-04 10:35 | HOSP ---
Subjective - Review of Symptoms Subjective: Patient seen and examined at bedside Extensive HPI taken. Patient endorses he drank rubbing alcohol 2 mornings ago. He states he drank half of a regular bottle of rubbing (isopropyl) alcohol. Nephrology contacted Osmolality added to labs ABG ordered Vital Signs Temperature 98.2 F 12/04/17 09:00 Pulse Rate 81 12/04/17 09:00 Respiratory Rate 18 12/04/17 09:00 Blood Pressure 142/75 12/04/17 09:00 O2 Sat by Pulse Oximetry (%) 97 12/04/17 05:37 PE: NAD AAOx3 RRR CTAB soft non tender non distended No Edema 37M with polysubstance abuse sent to the ER by his family for alcohol detox found to have RADHA and admits to drinking isopropyl alcohol Problem list: Polysubstance abuse alcohol abuse history of cocaine abuse ingestion of isopropyl alcohol acute kidney injury Plan: admit to inpatient services Dr. Eastman from nephrology consulted and contacted. Discussed case and will see patient in consultation ABG osmolality add on IVF NS @ 100ml/hr Trend Cr Avoid nephrotoxic drugs Renal US urine electrolytes to calculate FeNa Librium Protocol Banana bag Multivitamin Bicarb WNL DVT PPx PPI Case discussed with Dr. Riley Physical Examination Vital Signs: Vital Signs Temperature 98.2 F 12/04/17 09:00 Pulse Rate 81 12/04/17 09:00 Respiratory Rate 18 12/04/17 09:00 Blood Pressure 142/75 12/04/17 09:00 O2 Sat by Pulse Oximetry (%) 97 12/04/17 05:37 Labs: CBC, BMP 12/04/17 07:10 12/04/17 07:10 Visit type - Emergency Visit Emergency Visit: Yes ED Registration Date: 12/04/17 Care time: The patient presented to the Emergency Department on the above date and was hospitalized for further evaluation of their emergent condition. - New Patient This patient is new to me today: Yes Date on this admission: 12/04/17 - Critical Care Critical Care patient: No
[2017-12-04] MEDS ORDERED: PANTOPRAZOLE 40 MG TABLET (FP) PO SCH (10:45)
[2017-12-04] MEDS ORDERED: MULTIVITAMINS (DAILY MVI) TABLET (FP) PO SCH (10:45)
[2017-12-04 11:10] LABS: ARTERIAL BLD GAS O2 SATURATION 96.5 % (90-98.9); ARTERIAL BLOOD GAS BASE EXCESS 4.1 meq/l (-2-2); ARTERIAL BLOOD GAS PO2 82.9 mmHg (80-100); ARTERIAL BLOOD GAS pH 7.46 (7.35-7.45)
[2017-12-04 11:14] LABS: ALLENS TEST POSITIVE
[2017-12-04] MEDS ORDERED: PANTOPRAZOLE 40 MG TABLET (FP) ONE (11:35)
[2017-12-04 12:04] LABS: OSMOLALITY,SERUM 315 mosm/kg (278-305)
--- NOTE | 2017-12-04 12:08 | EKG ---
Test Reason : Blood Pressure : / mmHG Vent. Rate : 097 BPM Atrial Rate : 097 BPM P-R Int : 142 ms QRS Dur : 096 ms QT Int : 342 ms P-R-T Axes : 056 080 044 degrees QTc Int : 434 ms NORMAL SINUS RHYTHM NORMAL ECG WHEN COMPARED WITH ECG OF 01-JUN-2017 12:50, NO SIGNIFICANT CHANGE WAS FOUND Confirmed by ISABELLE ZAYAS MD ([id number]) on 12/04/2017 12:08:17 PM Referred By: Confirmed By:ISABELLE ZAYAS MD
[2017-12-04 15:23] VITALS: BP 98/68; PULSE 101
--- NOTE | 2017-12-04 15:31 | PN ---
Progress Note (short form) - Note Progress Note: Pt seen in the ER. In process of signing out AMA. Informed patient that he would need inpatient monitoring of renal function given RADHA and that he would require IVF and repeat lab studies. I informed him that he is at risk of possibly worsening renal function. He expressed understanding but wanted to leave anyway. Joao Eastman DO
--- NOTE | 2017-12-04 16:59 | PN ---
Teaching Attending Note Name of Resident: Damián Hernandez ATTENDING PHYSICIAN STATEMENT I saw and evaluated the patient. I reviewed the resident's note and discussed the case with the resident. I agree with the resident's findings and plan as documented. SUBJECTIVE: Patient is a 37yo male presented to the hospital due to drinking half a bottle of rubbing alcohol. OBJECTIVE: Vital Signs Temperature 98.2 F 12/04/17 14:18 Pulse Rate 101 H 12/04/17 15:22 Respiratory Rate 18 12/04/17 15:22 Blood Pressure 98/68 12/04/17 15:22 O2 Sat by Pulse Oximetry (%) 97 12/04/17 15:22 NAD AAOx3 RRR CTAB soft non tender non distended No Edema CBCD WBC 10.1 K/mm3 (4.0-10.0) H 12/04/17 07:10 RBC 4.60 M/mm3 (4.00-5.60) 12/04/17 07:10 Hgb 13.8 GM/dL (11.7-16.9) 12/04/17 07:10 Hct 41.1 % (35.4-49) 12/04/17 07:10 MCV 89.5 fl (80-96) 12/04/17 07:10 MCHC 33.5 g/dl (32.0-35.9) 12/04/17 07:10 RDW 14.6 % (11.9-15.9) 12/04/17 07:10 Plt Count 281 K/MM3 (134-434) 12/04/17 07:10 MPV 7.4 fl (7.5-11.1) L 12/04/17 07:10 CMP Sodium 140 mmol/L (136-145) 12/04/17 07:10 Potassium 3.6 mmol/L (3.5-5.1) 12/04/17 07:10 Chloride 104 mmol/L (98-107) 12/04/17 07:10 Carbon Dioxide 28 mmol/L (21-32) 12/04/17 07:10 Anion Gap 8 MMOL/L (8-16) 12/04/17 07:10 BUN 9 mg/dL (7-18) 12/04/17 07:10 Creatinine 1.9 mg/dL (0.55-1.3) H 12/04/17 07:10 Creat Clearance w eGFR 40.09 (>60) 12/04/17 07:10 Random Glucose 108 mg/dL (74-106) H 12/04/17 07:10 Calcium 8.5 mg/dL (8.5-10.1) 12/04/17 07:10 Total Bilirubin 0.4 mg/dL (0.2-1) 12/04/17 07:10 AST 26 U/L (15-37) 12/04/17 07:10 ALT 32 U/L (13-61) 12/04/17 07:10 Alkaline Phosphatase 60 U/L (45-117) 12/04/17 07:10 Total Protein 6.7 g/dl (6.4-8.2) 12/04/17 07:10 Albumin 3.5 g/dl (3.4-5.0) 12/04/17 07:10 Home Medications Medication Instructions Recorded NK [No Known Home Medication] 05/28/13 A/P: Patient is a 37yo male presented to ED. for alcohol detox found to have RADHA and admits to drinking isopropyl alcohol # RADHA due to having rubbing alcohol , IVF , Nephro consult. # Hx of Polysubstance abuse, cocaine abuse, alcohol dependency . Patient refused treatment , signed against medical advice. Patient was explained the risk for not contining treatments, ESRD, on HD. Patient understood and signed against medical advice.
--- NOTE | 2017-12-04 17:24 | DS ---
Physical Examination Vital Signs: Patient is a 37yo male presented to the hospital due to drinking half a bottle of rubbing alcohol. OBJECTIVE: Vital Signs Temperature 98.2 F 12/04/17 14:18 Pulse Rate 101 H 12/04/17 15:22 Respiratory Rate 18 12/04/17 15:22 Blood Pressure 98/68 12/04/17 15:22 O2 Sat by Pulse Oximetry (%) 97 12/04/17 15:22 NAD AAOx3 RRR CTAB soft non tender non distended No Edema CBCD WBC 10.1 K/mm3 (4.0-10.0) H 12/04/17 07:10 RBC 4.60 M/mm3 (4.00-5.60) 12/04/17 07:10 Hgb 13.8 GM/dL (11.7-16.9) 12/04/17 07:10 Hct 41.1 % (35.4-49) 12/04/17 07:10 MCV 89.5 fl (80-96) 12/04/17 07:10 MCHC 33.5 g/dl (32.0-35.9) 12/04/17 07:10 RDW 14.6 % (11.9-15.9) 12/04/17 07:10 Plt Count 281 K/MM3 (134-434) 12/04/17 07:10 MPV 7.4 fl (7.5-11.1) L 12/04/17 07:10 CMP Sodium 140 mmol/L (136-145) 12/04/17 07:10 Potassium 3.6 mmol/L (3.5-5.1) 12/04/17 07:10 Chloride 104 mmol/L (98-107) 12/04/17 07:10 Carbon Dioxide 28 mmol/L (21-32) 12/04/17 07:10 Anion Gap 8 MMOL/L (8-16) 12/04/17 07:10 BUN 9 mg/dL (7-18) 12/04/17 07:10 Creatinine 1.9 mg/dL (0.55-1.3) H 12/04/17 07:10 Creat Clearance w eGFR 40.09 (>60) 12/04/17 07:10 Random Glucose 108 mg/dL (74-106) H 12/04/17 07:10 Calcium 8.5 mg/dL (8.5-10.1) 12/04/17 07:10 Total Bilirubin 0.4 mg/dL (0.2-1) 12/04/17 07:10 AST 26 U/L (15-37) 12/04/17 07:10 ALT 32 U/L (13-61) 12/04/17 07:10 Alkaline Phosphatase 60 U/L (45-117) 12/04/17 07:10 Total Protein 6.7 g/dl (6.4-8.2) 12/04/17 07:10 Albumin 3.5 g/dl (3.4-5.0) 12/04/17 07:10 Home Medications Medication Instructions Recorded NK [No Known Home Medication] 05/28/13 A/P: Patient is a 37yo male presented to ED. for alcohol detox found to have RADHA and admits to drinking isopropyl alcohol # RADHA due to having rubbing alcohol , IVF , Nephro consult. # Hx of Polysubstance abuse, cocaine abuse, alcohol dependency . Patient refused treatment , signed against medical advice. Patient was explained the risk of not continuing treatments, ESRD, on HD. Patient understood and signed against medical advice. Labs: CBC, BMP 12/04/17 07:10 12/04/17 07:10 Discharge Summary Reason For Visit: ACUTE KIDNEY INJURY,ALCOHOL DEPENDENCE Condition: Stable - Instructions Disposition: AGAINST MEDICAL ADVICE - Home Medications Comprehensive Discharge Medication List: Ambulatory Orders NK [No Known Home Medication] 05/28/13 This patient is new to me today: Yes Date on this admission: 12/04/17 Emergency Visit: Yes ED Registration Date: 12/04/17 Care time: The patient presented to the Emergency Department on the above date and was hospitalized for further evaluation of their emergent condition. Critical Care patient: No - Discharge Referral Referred to [facility] Med P.C.: No
[2017-12-05] MEDS ORDERED: chlordiazePOXIDE HCL 25 MG CAPSULE PO SCH (05:00)
[2017-12-06] MEDS ORDERED: chlordiazePOXIDE 5 MG CAPSULE PO SCH (05:00)
[2017-12-07] MEDS ORDERED: chlordiazePOXIDE 5 MG CAPSULE PO SCH (05:00)
== END 2017-12-04 15:30 | disposition left against medical advice (07) | DRG 683 ==
LOC: JER 21:20 → JERBED 12-04 02:35 → OBSVTOIN 12-04 03:54
PROVIDERS: ADMIT Internal Medicine; ATTEND Internal Medicine
PROC: HZ2ZZZZ Detoxification Services for Substance Abuse Treatment (ICD-10-PCS; principal; 2017-12-04)
DX: N17.9 Acute kidney failure, unspecified (principal); F10.230 Alcohol dependence with withdrawal, uncomplicated; E86.0 Dehydration; F14.10 Cocaine abuse, uncomplicated; F19.10 Other psychoactive substance abuse, uncomplicated; T51.2X1A Toxic effect of 2-Propanol, accidental (unintentional), initial encounter; Y92.098 Other place in other non-institutional residence as the place of occurrence of the external cause
CPT/HCPCS: 36415; 36600; 76775-TC; 80053; 80307; 81003; 82803; 83036; 83690; 83930; 85025; 93005; 93010; 99285-25; G0378; J7030

== ENCOUNTER 2018-06-22 03:47 | Emergency (ER) | payer BC | END 2018-06-22 05:29 | disposition left against medical advice (07) | LOC: JER 03:47 | DX: Z53.21 Procedure and treatment not carried out due to patient leaving prior to being seen by health care provider (principal) | CPT/HCPCS: 99281-25 ==